=== PATIENT | male | born 1980 ===

== ENCOUNTER 2018-05-02 07:13 | Day surgery (SDC) | payer OTHER ==
--- NOTE | 2018-05-02 09:51 | CP.SDSHP ---
Same Day Surgery H & P - History Proposed Procedure: COLONSCOPY Pre-Op Diagnosis: SEE NOTES - Previous Medical/Surgical History Misc: Other Pain: 4.Moderate Pain - Allergies Allergies: Allergies SHRIMP Allergy (Uncoded 05/02/18 07:37) ITCHING - Physical Exam General Appearance: N Vital Signs: Vital Signs 05/02/18 07:25 Temperature 97.7 F Pulse Rate 73 Respiratory 19 Rate Blood Pressure 130/77 O2 Sat by Pulse 100 Oximetry Mental Status: Alert & Oriented x3 Neuro: WNL Heart: WNL Lungs: WNL GI: Other - {Optional Preform as Required} Breast: WNL Abdomen: Other Rectal: Other Integument: WNL : WNL Ortho: WNL ENT: WNL - Impression Pt. Evaluated Today:Candidate for Anesthesia & Procedure: Yes - Date & Time Time: 09:51 Short Stay Discharge - Short Stay Discharge Admitting Diagnosis/Reason for Visit: HEMORRHAGE OF ANUS AND RECTUM Disposition: HOME/ ROUTINE
[2018-05-02] MEDS ORDERED: Belladonna-Phenobarbital PO STA (09:52)
[2018-05-02] MEDS ORDERED: Propofol 10 mg/ml Inj (20 ML) ONE ×2 (09:55→10:02)
[2018-05-02] MEDS ORDERED: Midazolam 2 MG/2 ML VIAL ONE (10:02)
[2018-05-02 10:24] VITALS: TEMP 97.1
[2018-05-02 10:57] VITALS: O2SAT 100
[2018-05-02 13:22] VITALS: BP 122/71; PULSE 72; RESP 18
== END 2018-05-02 11:15 | disposition home or self-care (01) ==
LOC: C.ENDO 07:13
PROVIDERS: ATTEND Specialist
DX: K57.30 Diverticulosis of large intestine without perforation or abscess without bleeding (principal); K64.8 Other hemorrhoids
CPT/HCPCS: 45380; 88305; J2250; J2704